=== PATIENT | female | born 1970 | race Caucasian/White ===

== ENCOUNTER → 2021-05-11 12:34 | Outpatient (CLI) | payer OTHER, SELFPAY ==
--- NOTE | ~2021-05-11 | MM_ITS ---
EXAMINATION: MM screening pepper BI w jaimie HISTORY: Screening TECHNIQUE: Craniocaudal and mediolateral oblique 3-D tomosynthesis images were obtained and synthetic 2-D images were generated. CAD analysis was submitted and interpreted. COMPARISON: Comparison to multiple prior studies sequentially, with oldest reviewed study dated 03/17. BREAST PARENCHYMAL COMPOSITION: There are scattered areas of fibroglandular density. FINDINGS: There is no evidence of suspicious mass, calcification, or architectural distortion to sugg est malignancy in either breast. There has been no suspicious interval change. IMPRESSION: 1. No mammographic evidence of malignancy. 2. Recommend routine screening mammography in one year. BI-RADS Category 1: Negative Reviewed, dictated and finalized at location A.
== END ==
PROVIDERS: Visit Provider Obstetrics & Gynecology
DX: Z12.31 Encounter for screening mammogram for malignant neoplasm of breast (principal)
CPT/HCPCS: 77063; 77067

== ENCOUNTER 2022-07-10 10:17 | Emergency (ER) | payer OTHER, SELFPAY ==
--- NOTE | ~2022-07-10 | CT_ITS ---
EXAMINATION: CT abdomen pelvis w con DATE: 07/10/2022 11:47 INDICATION: Low abdominal pain. TECHNIQUE: Computed tomography (CT) of the abdomen and pelvis was performed with 100 mL Omnipaque 350 intravenous contrast. Automated exposure control and iterative reconstruction technique were employe d. The dose-length product was 386.63 mGy-cm. COMPARISON: CT abdomen and pelvis 08/12/2018 FINDINGS: The visualized portions of the lung bases demonstrate mild atelectasis. No pleural effusion . The heart size is normal. No pericardial effusion. The liver, gallbladder, spleen, pancreas, adrena l glands, and kidneys are normal. There is wall thickening of the descending and sigmoid colon, consi stent with colitis. The appendix is normal. There are no pathologically enlarged lymph nodes. There i s no free intraperitoneal fluid. There is severe lumbar spondylosis. IMPRESSION: 1. Colitis involving the descending and sigmoid colon. Reviewed, dictated and finalized at location A.
[2022-07-10 10:20] VITALS: BP 103/76; PULSE 80; RESP 16; TEMP 36.5; O2SAT 100
[2022-07-10 11:07] LABS: Basophils Percent Auto 0.3 % (0.2-1.2); Eosinophils Percent Auto 0.1 % (0-4.4); Hematocrit 44.4 % (37.0-47.0); Hemoglobin 14.8 g/dL (12.0-15.0); Immature Granulocyte Absolute 0.03 K/mm3 (0.00-0.031); Immature Granulocyte Percent A 0.3 % (0-0.5); Lymphocytes Absolute Auto 1.24 K/mm3 (0.9-3.2); Lymphocytes Percent Auto 11.9 % (18.3-44.2); Mean Corpuscular HGB Conc 33.3 g/dl (32-36); Mean Corpuscular Hemoglobin 28.8 pg (26-34); Mean Corpuscular Volume 86.4 fl (80-100); Mean Platelet Volume 10.3 fl (7.4-10.4); Monocytes Absolute Auto 0.4 K/mm3 (0.1-0.6); Monocytes Percent Auto 3.4 % (2.6-8.5); Neutrophils Absolute Auto 8.8 K/mm3 (1.3-6.7); Platelet Count Result 262 k/mm3 (150-375); Red Blood Count 5.14 M/mm3 (4.2-5.4); White Blood Count 10.4 K/mm3 (4.5-10.0)
[2022-07-10 11:18] LABS: Alanine Aminotransferase 24 U/L (6-35); Albumin Level 4.7 g/dL (3.5-5.1); Alkaline Phosphatase 50 U/L (38-126); Anion Gap 14 mmol/L (8-16); Aspartate Amino Transferase 26 U/L (14-36); Bilirubin,Total 0.4 mg/dL (0.2-1.3); Blood Urea Nitrogen 13 mg/dL (7-17); Calcium 9.5 mg/dL (8.4-10.2); Carbon Dioxide 25 mmol/L (22-30); Chloride 104 mmol/L (98-107); Estimated CRCL calculation 72 ml/min; Estimated Glomerular Filt Rate > 60; Glucose 164 mg/dL (65-110); Lipase 28 U/L (23-300); Potassium 3.6 mmol/L (3.4-5.0); Sodium 143 mmol/L (137-145)
--- NOTE | 2022-07-10 11:19 | ED.ABDPAIN ---
HPI - Abdominal Pain General Chief Complaint: Abdominal Pain Stated Complaint: bloody stool since 0200 Time Seen by Provider: 07/10/22 11:08 Source: patient and family Mode of arrival: ambulatory Limitations: no limitations History of Present Illness HPI narrative: Patient presents complaints of lower abdominal pain that started 2 days ago. Reports having bloody mucus like stools. Evaluated by ACTUARIAL DIRECTOR yesterday with rectal exam and no palpable hemorrhoids. Patient states that 0 200 this a.m. started having increased pain to lower abdomen. Denies urinary symptoms, vaginal symptoms, fever or other complaints at this time. Related Data Home Medications Medication Instructions Recorded Confirmed norethindrone (contraceptive) 0.35 0.35 mg PO DAILY 11/16/21 05/06/22 mg tablet (Norlyda) Allergies Allergy/AdvReac Type Severity Reaction Status Date / Time No Known Allergies Allergy Verified 07/10/22 10:25 Review of Systems Review of Systems: CONSTITUTIONAL: Denies fever, chills, or sweats. EYES: Denies visual changes, redness, or discharge. ENT: Denies rhinorrhea, congestion, sore throat, or otalgia. CARDIOVASCULAR: Denies chest pain, palpitations, or edema. RESPIRATORY: Denies cough or dyspnea. GASTROINTESTINAL: Lower abdominal pain, nausea, vomiting, or diarrhea. Bloody mucous like stools. GENITOURINARY: Denies dysuria or hematuria. SKIN: Denies rash or itching. MUSCULOSKELETAL: Denies back pain, joint pain, or myalgia. NEUROLOGIC: Denies headache, numbness, or weakness. PSYCHIATRIC: Denies anxiety or depression. All systems reviewed & are unremarkable except as noted in HPI and below PMFSH Past Medical History Medical History (Updated 07/10/22 @ 12:29 by Brandon Aguirre APRN) delivery delivered Family History Family History Mother Hypertension Grandparent Family history of coronary artery disease Diabetes mellitus Father Advanced dementia Other Family history of malignant neoplasm Social History Social History Smoking status: Never smoker Alcohol intake: current Exam Narrative: GENERAL: Well-appearing, well-nourished, and in no acute distress. HEAD: Normocephalic, atraumatic. EYES: PERRLA and EOMI. ENT: Nares clear, no rhinorrhea or epistaxis. Mucous membranes moist. NECK: Supple. CHEST: Clear to auscultation. No respiratory distress. HEART: Regular rate and rhythm. No murmur heard. Normal peripheral pulses. ABDOMEN: Soft, slight tenderness lower ABD (RLQ, LLQ), nondistended, normal active bowel sounds. EXTREMITIES: Normal range of motion. No edema. SKIN: Warm, dry, no rash. NEURO: No focal deficits. Alert and oriented x3. PSYCH: Normal mood and affect. Course Vital Signs Vital signs: Vital Signs Temperature 36.5 C 07/10/22 10:20 Pulse Rate 80 07/10/22 10:20 Respiratory Rate 16 07/10/22 10:20 Blood Pressure 103/76 07/10/22 10:20 Pulse Oximetry 100 07/10/22 10:20 Oxygen Delivery Room Air 07/10/22 10:20 Temperature 36.5 C 07/10/22 10:20 Pulse Rate 80 07/10/22 10:20 Respiratory Rate 16 07/10/22 10:20 Blood Pressure 103/76 07/10/22 10:20 Pulse Oximetry 100 07/10/22 10:20 Oxygen Delivery Room Air 07/10/22 10:20 MDM - Abdominal Pain Lab Data Result diagrams: 07/10/22 10:58 07/10/22 10:58 Labs: Lab Results 07/10/22 07/10/22 07/10/22 Range/Units 10:58 10:58 10:58 WBC 10.4 H (4.5-10.0) K/mm3 RBC 5.14 (4.2-5.4) M/mm3 Hgb 14.8 (12.0-15.0) g/dL Hct 44.4 (37.0-47.0) % MCV 86.4 (80-100) fl MCH 28.8 (26-34) pg MCHC 33.3 (32-36) g/dl RDW 13.0 (11.5-14.5) % Plt Count 262 (150-375) k/mm3 MPV 10.3 (7.4-10.4) fl Immature Gran % (Auto) 0.3 (0-0.5) % Neut % (Auto) 84.0 H (45.5-73.1) % Lymph % (Auto) 11.9 L (1
[2022-07-10 11:27] LABS: Add Urine Microscopic? YES; Appearance Urine Cloudy (Clear); Bilirubin Urine Negative (Negative); Blood Urine 3+ (Negative); Color Urine Yellow (Yellow); Glucose Urine UA Negative (Negative); Ketones Urine Negative (Negative); Leukocyte Esterase Ur Negative LEU/UL (Negative); Mucus Urine Heavy /lpf; Nitrate Urine Negative (Negative); Protein Urine 1+ mg/dL (Negative); RBC Urine >75 /hpf (0-2); Specific Grav Ur 1.026 (1.001-1.035); Squamous Epithelial Cell Urine Many /hpf (Few); Urobilinogen Urine Negative mg/dL (<2.0); WBC Urine 16-20 /hpf
[2022-07-10 13:02] VITALS: BP 149/83; PULSE 72; RESP 16
== END 2022-07-10 13:03 | disposition home or self-care (01) ==
PROVIDERS: General Practice; Emergency Provider Nurse Practitioner; PCP Family Medicine
DX: K52.9 Noninfective gastroenteritis and colitis, unspecified (principal)
CPT/HCPCS: 36415; 74177; 80053; 81001; 81025; 83690; 85025; 87086; 99284; Q9967

== ENCOUNTER 2022-08-05 08:00 | Outpatient (NON) | payer OTHER, SELFPAY | END 2022-08-05 08:01 | disposition home or self-care (01) | LOC: ANHLAB 08-06 07:51 | PROVIDERS: PCP Family Medicine; Visit Provider Internal Medicine Gastroenterology | DX: K52.9 Noninfective gastroenteritis and colitis, unspecified (principal) | CPT/HCPCS: 88305 ==

== ENCOUNTER 2022-08-05 10:46 | Day surgery (SDC) | payer OTHER, SELFPAY ==
[2022-07-17 14:35] VITALS: BMI 25.7
[2022-08-05 11:09] VITALS: BMI 25.7
--- NOTE | 2022-08-05 11:11 | P.PNAN_ITS ---
Anes - Initial Pre Proc Eval Procedure: Operation Date: 08/05/22 12:30 Proposed Procedures p Diagnostic Colonoscopy - Tomas Issa MD Date/Time: 08/05/22 11:11 Surgeon: Tomas Issa MD Pre Op Diagnosis: Colitis Patient Data Age: 51 Gender: F Height: 1.63 m Weight: 68 kg Allergies Allergy/AdvReac Type Severity Reaction Status Date / Time No Known Allergies Allergy Verified 08/05/22 10:55 Home Medications Medication Instructions Recorded Confirmed Type norethindrone (contraceptive) 0.35 0.35 mg PO DAILY 11/16/21 08/05/22 History mg tablet (Norlyda) sodium,potassium,mag sulfates 17.5 See Rx Instructions PO .COMPLEX 07/12/22 07/18/22 Rx gram-3.13 gram-1.6 gram oral soln #354 mL (Suprep Bowel Prep Kit) Patient hx anesthesia problems: none Family hx anesthesia problems: none Results Review: All pre-operative results and documents have been reviewed as part of the pre- operative evaluation. [facility] Past Medical History Medical History BMI 26.0-26.9,adult delivery delivered Smoker Surgical History Surgical History (Updated 08/05/22 @ 11:11 by Rex Cyr MD) History of section Family History Family History Mother Hypertension Grandparent Family history of coronary artery disease Diabetes mellitus Father Advanced dementia Other Family history of malignant neoplasm Social History Social History Smoking packs per day: 0.3 Smoking cigarettes per day: 6.0 Years smoked: 20 Smoking pack-years: 6.00 Smoking status: Current every day smoker Tobacco type: cigarettes Alcohol intake: current Substance use: never Substance use type: does not use Living arrangements: with family Spiritual care concerns: No Anes - Eval Final PreProcedure Day of Procedure 08/05/22 11:11 Patient weight: normal Heart: regular rate and rhythm Lungs: clear to auscultation Airway: Mallampati scale class II Neurological: alert and oriented Last oral intake: >/= 8 hours ASA classification: II Emergent: no Anesthetic plan: proceed Anesthesia type and monitoring: general GIVS and standard monitoring Results Review: All pre-operative results and documents have been reviewed as part of the pre-operative evaluation. Informed Consent: The patient's anesthetic plan and its attendant risks and benefits were discussed with the patient/family/POA. Questions were solicited and answers provided to the satisfaction of the patient/family/POA.
--- NOTE | 2022-08-05 11:11 | PM.HPGS ---
History of Present Illness History of Present Illness Consent: Risks, benefits, and alternatives have been discussed and questions answered. Patient agrees to proceed with procedure. Chief complaint: Colitis Narrative: Keyana Maharaj is a 51 year old female Referred for colonoscopy. Patient reports that she went to the emergency room on 07/10/2022. She awoke that morning with bloody diarrhea. She went to the emergency room with rather significant watery diarrhea that was blood tinged. A CT scan in the emergency room suggested colitis. Patient was treated empirically with antibiotics of Cipro and Flagyl. She noticed improvement over a week's time. Patient did not have stool cultures obtained. Patient reports that at baseline her bowel habits are somewhat irregular. She typically does not have pain nor bleeding. Family history is noncontributory. Patient presents today on referral for colonoscopy because of recent bout of colitis. Review of Systems Review of Systems: Review of systems noncontributory. [facility] Past Medical History Medical History BMI 26.0-26.9,adult delivery delivered Smoker Surgical History Surgical History (Updated 08/05/22 @ 11:11 by Rex Cyr MD) History of section Family History Family History Mother Hypertension Grandparent Family history of coronary artery disease Diabetes mellitus Father Advanced dementia Other Family history of malignant neoplasm Social History Social History Smoking packs per day: 0.3 Smoking cigarettes per day: 6.0 Years smoked: 20 Smoking pack-years: 6.00 Smoking status: Current every day smoker Tobacco type: cigarettes Alcohol intake: current Substance use: never Substance use type: does not use Living arrangements: with family Spiritual care concerns: No Meds Home Medications and Allergies Home Medications Medication Instructions Recorded Confirmed Type norethindrone (contraceptive) 0.35 0.35 mg PO DAILY 11/16/21 08/05/22 History mg tablet (Norlyda) sodium,potassium,mag sulfates 17.5 See Rx Instructions PO .COMPLEX 07/12/22 07/18/22 Rx gram-3.13 gram-1.6 gram oral soln #354 mL (Suprep Bowel Prep Kit) Allergies Allergy/AdvReac Type Severity Reaction Status Date / Time No Known Allergies Allergy Verified 08/05/22 10:55 Exam Narrative: Physical exam reveals patient to be alert. Vital signs stable. HEENT exam is unremarkable. Patient is anicteric. Lungs are clear to auscultation and percussion. Heart is without murmur or extra sounds. Abdomen bowel sounds are present soft nontender with no organomegaly. Digital external rectal exam is normal. Assessment and Plan Assessment and plan (1) Colitis: Code(s): K52.9 - Noninfective gastroenteritis and colitis, unspecified Status: Acute Assessment and Plan: Patient reports a bout of bloody diarrhea [address] scan in the emergency room suggested colitis. Patient was treated with broad-spectrum antibiotics for presumed infectious colitis. Plan is for follow-up colonoscopy at this time. Should diarrhea recur then stool cultures would be beneficial. Further recommendations may be Given after endoscopy. suggest high-fiber diet at this time.
[2022-08-05 11:18] VITALS: BP 103/61; RESP 13; TEMP 36.7; O2SAT 100
[2022-08-05] MEDS: LACTATED RINGERS 1,000 ML 150 ML IV CONT (11:25)
[2022-08-05 11:45] VITALS: BP 107/74; PULSE 94; RESP 16; O2SAT 100
--- NOTE | 2022-08-05 11:48 | WPDANESPN ---
Anes - Prog Note Post-Op Date/Time: 08/05/22 11:48 Cardiovascular status: normal Respiratory status: normal Airway patency: baseline Mental status: baseline Post-Op hydration status: normal Vital Signs: Last Vital Signs Temp 36.7 C 08/05/22 11:18 Resp 13 08/05/22 11:18 BP 103/61 08/05/22 11:18 Pulse Ox 100 08/05/22 11:18 O2 Del Method Room Air 08/05/22 11:18 Pain Score (VAS): 0/10 I/O: Intake & Output 08/04/22 08/05/22 08/05/22 23:59 07:59 15:59 Intake Total 300 Balance 300 Patient Feedback: Patient satisfied with anesthetic care.
[2022-08-05 11:55] VITALS: BP 97/71; PULSE 89; RESP 20; O2SAT 100
[2022-08-05 12:05] VITALS: BP 112/59; PULSE 89; RESP 20; O2SAT 100
== END 2022-08-05 12:20 | disposition home or self-care (01) ==
PROVIDERS: PCP Family Medicine; Visit Provider Internal Medicine Gastroenterology
PROC: 0DJD8ZZ Inspection of Lower Intestinal Tract, Via Natural or Artificial Opening Endoscopic (ICD-10-PCS; CPT 45378; principal; 2022-08-05 12:30)
DX: R93.3 Abnormal findings on diagnostic imaging of other parts of digestive tract (principal)
CPT/HCPCS: 45385

== ENCOUNTER → 2022-09-20 10:51 | Outpatient (CLI) | payer OTHER, SELFPAY ==
--- NOTE | ~2022-09-20 | MM_ITS ---
EXAMINATION: MM screening [facility] BI w jaimie HISTORY: Screening TECHNIQUE: Craniocaudal and mediolateral oblique 3-D tomosynthesis images were obtained and synthetic 2-D images were generated. CAD analysis was submitted and interpreted. COMPARISON: Comparison to multiple prior studies sequentially, with oldest reviewed study dated 08/30. BREAST PARENCHYMAL COMPOSITION: There are scattered areas of fibroglandular density. FINDINGS: There is no evidence of suspicious mass, calcification, or architectural distortion to sugg est malignancy in either breast. There has been no suspicious interval change. IMPRESSION: 1. No mammographic evidence of malignancy. 2. Recommend routine screening mammography in one year. BI-RADS Category 1: Negative Reviewed, dictated and finalized at location A. ING MACHINE OPERATOR
== END ==
PROVIDERS: PCP Family Medicine; Visit Provider Nurse Practitioner
DX: Z12.31 Encounter for screening mammogram for malignant neoplasm of breast (principal)
CPT/HCPCS: 77063; 77067

== ENCOUNTER 2023-12-24 13:06 | Outpatient (CLI) | payer OTHER, SELFPAY ==
--- NOTE | ~2023-12-24 | MM_ITS ---
EXAMINATION: MM screening pepper BI w jaimie HISTORY: Screening mammogram TECHNIQUE: Craniocaudal and mediolateral oblique 3-D tomosynthesis images were obtained and synthetic 2-D images were generated. CAD analysis was submitted and interpreted. COMPARISON: 09/20/2022, bilateral screening mammogram examinations BREAST PARENCHYMAL COMPOSITION: There are scattered areas of fibroglandular density. FINDINGS: There is no evidence of suspicious mass, calcification, or architectural distortion to sugg est malignancy in either breast. There has been no suspicious interval change. IMPRESSION: 1. No mammographic evidence of malignancy. 2. Recommend routine screening mammography in one year. BI-RADS Category 1: Negative Reviewed, dictated and finalized at location A.
== END 2023-12-24 13:07 ==
LOC: MICIMG 13:07
PROVIDERS: PCP Nurse Practitioner; Visit Provider Nurse Practitioner
DX: Z12.31 Encounter for screening mammogram for malignant neoplasm of breast (principal)
CPT/HCPCS: 77063; 77067

== ENCOUNTER 2025-02-09 13:06 | Outpatient (CLI) | payer BC, SELFPAY ==
--- NOTE | ~2025-02-09 | MM_ITS ---
EXAMINATION: MM screening pepper BI w jaimie HISTORY: Screening TECHNIQUE: Craniocaudal and mediolateral oblique 3-D tomosynthesis images were obtained and synthetic 2-D images were generated. CAD analysis was submitted and interpreted. COMPARISON: Comparison to multiple prior studies sequentially, with oldest reviewed study dated 04/17. BREAST PARENCHYMAL COMPOSITION: Not dense: There are scattered areas of fibroglandular density. FINDINGS: There is no evidence of suspicious mass, calcification, or architectural distortion to sugg est malignancy in either breast. There has been no suspicious interval change. IMPRESSION: 1. No mammographic evidence of malignancy. 2. Recommend routine screening mammography in one year. BI-RADS Category 1: Negative Reviewed, dictated and finalized at location A.
== END 2025-02-09 13:07 | disposition home or self-care (01) ==
LOC: MICIMG 13:08
PROVIDERS: PCP Family Medicine; Visit Provider Nurse Practitioner
DX: Z12.31 Encounter for screening mammogram for malignant neoplasm of breast (principal)
CPT/HCPCS: 77063; 77067

== ENCOUNTER 2025-08-06 06:57 | Outpatient (CLI) | payer BC, SELFPAY ==
[2025-08-06 07:57] LABS: Hematocrit 40.0 % (37.0-47.0); Hemoglobin 13.0 g/dL (12.0-15.0); Immature Granulocyte Percent A 0.3 % (0-0.5); Lymphocytes Absolute Auto 1.97 K/mm3 (0.9-3.2); Mean Corpuscular HGB Conc 32.5 g/dl (32-36); Mean Corpuscular Hemoglobin 27.5 pg (26-34); Mean Corpuscular Volume 84.6 fl (80-100); Nucleated Red Blood Cells Absolute Auto 0.000 K/mm3 (0.0-0.012); Nucleated Red Blood Cells Perc 0.0 % (0.0-0.2); Platelet Count Result 231 k/mm3 (150-375); Red Blood Count 4.73 M/mm3 (4.2-5.4); White Blood Count 5.9 K/mm3 (4.5-10.0)
[2025-08-06 08:20] LABS: Alanine Aminotransferase 21 U/L (6-35); Albumin Level 4.1 g/dL (3.5-5.1); Alkaline Phosphatase 46 U/L (38-126); Anion Gap 6 mmol/L (4-12); Aspartate Amino Transferase 26 U/L (14-36); Bilirubin,Total 0.4 mg/dL (0.2-1.3); Blood Urea Nitrogen 17 mg/dL (7-17); Calcium 8.9 mg/dL (8.4-10.2); Carbon Dioxide 26 mmol/L (22-30); Chloride 107 mmol/L (98-107); Cholesterol 168 mg/dL (0-200); Estimated Glomerular Filt Rate > 60; Glucose 101 mg/dL (65-110); HDL Direct 41 mg/dL; Potassium 4.2 mmol/L (3.4-5.0); Sodium 139 mmol/L (137-145); Total Protein 6.7 g/dL (6.3-8.2); Triglycerides 54 mg/dL (<150)
[2025-08-06 08:54] LABS: Thyroid Stimulating Hormone 2.770 uIU/mL (0.465-4.680)
== END 2025-08-06 06:58 | disposition home or self-care (01) ==
LOC: ANHLAB 06:58
PROVIDERS: PCP Family Medicine; Visit Provider Nurse Practitioner Adult Health
DX: Z13.0 Encounter for screening for diseases of the blood and blood-forming organs and certain disorders involving the immune mechanism (principal); Z13.29 Encounter for screening for other suspected endocrine disorder; Z13.220 Encounter for screening for lipoid disorders; Z13.1 Encounter for screening for diabetes mellitus
CPT/HCPCS: 36415; 80053; 80061; 84443; 85025

== ENCOUNTER 2025-08-19 02:49 | Day surgery (SDC) | payer BC, SELFPAY ==
[2025-08-02 15:18] VITALS: BMI 27.6
[2025-08-19 07:18] VITALS: BP 136/76; PULSE 83; RESP 16; TEMP 36.4; O2SAT 100; BMI 29.0
--- NOTE | 2025-08-19 07:29 | WPDANESEPPF ---
Anes - Initial Pre Proc Eval Procedure: Operation Date: 08/19/25 08:30 Proposed Procedures p Screening Colonoscopy - Ramon Hunter MD Date/Time: 08/19/25 07:29 Surgeon: Ramon Hunter MD Pre Op Diagnosis: Other hemorrhoids, Polyp of colon Patient Data Age: 54 Gender: F Height: 1.63 m Weight: 76.6 kg Last Vital Signs Temp 36.4 C 08/19/25 07:18 Pulse 83 08/19/25 07:18 Resp 16 08/19/25 07:18 BP 136/76 08/19/25 07:18 Pulse Ox 100 08/19/25 07:18 O2 Del Method Room Air 08/19/25 07:18 Allergies Allergy/AdvReac Type Severity Reaction Status Date / Time No Known Allergies Allergy Verified 08/19/25 07:16 Home Medications ?Medication ?Instructions ?Recorded ?Confirmed ?Type norethindrone (contraceptive) 0.35 0.35 mg PO DAILY 11/16/21 08/19/25 History mg tablet (Norlyda) alprazolam 0.5 mg tablet (Xanax) 0.5 mg PO DAILY PRN anxiety #5 tabs 06/15/25 08/02/25 Rx Patient hx anesthesia problems: none Family hx anesthesia problems: none Results Review: All pre-operative results and documents have been reviewed as part of the pre-operative evaluation. [facility] Past Medical History Medical History Hematochezia Acute sinusitis Hyperlipidemia Needle phobia Colon polyp BMI 28.0-28.9,adult Smoker BMI 26.0-26.9,adult delivery delivered Surgical History Surgical History Hx of colonoscopy History of section Family History Family History Mother Hypertension Grandparent Family history of coronary artery disease Diabetes mellitus Father Advanced dementia Malignant neoplasm of prostate Sibling Leukemia Other Family history of malignant neoplasm Social History Social History Smoking packs per day: 0.3 Smoking cigarettes per day: 6.0 Years smoked: 20 Smoking pack-years: 6.00 Smoking status: Former smoker Tobacco type: e-cigarettes/vaping Second hand tobacco smoke exposure: Yes Alcohol intake: never Alcohol use details: RARELY Substance use: never Substance use type: does not use Do You Feel Safe in your Home?: Yes Lack of Transportation: No Lack of Food: Never True Current Housing: I Have Housing Concerned About Future Housing: No Difficulty Paying Gas/Electric Bills: No Difficulty Paying for Meds: No Currently Unemployed: No Education: High School Diploma/GED Difficulty w/ Childcare or Family Care: No Living arrangements: with family Occupation/Education: occupation 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 Informed Consent: The patient's anesthetic plan and its attendant risks and benefits were discussed with the patient/family/POA. Questions were solicited and answers provided to the satisfaction of the patient/family/POA.
[2025-08-19] MEDS: LACTATED RINGERS 1,000 ML 150 ML IV CONT (07:32)
--- NOTE | 2025-08-19 07:56 | PM.IMHP ---
H&P: HPI History of Present Illness Date/Time: 08/19/25 07:56 Chief Complaint: History of colon polyps Narrative: The patient has a history of colonic polyps, the last colonoscopy was 3 years ago, finding a sessile serrated polyp in the ascending colon. She is referred for surveillance colonoscopy. Review of Systems Review of Systems: All systems reviewed & are unremarkable except as noted in HPI and below PMFSH Past Medical History Medical History Hematochezia Acute sinusitis Hyperlipidemia Needle phobia Colon polyp BMI 28.0-28.9,adult Smoker BMI 26.0-26.9,adult delivery delivered Surgical History Surgical History Hx of colonoscopy History of section Family History Family History Mother Hypertension Grandparent Family history of coronary artery disease Diabetes mellitus Father Advanced dementia Malignant neoplasm of prostate Sibling Leukemia Other Family history of malignant neoplasm Social History Social History Smoking packs per day: 0.3 Smoking cigarettes per day: 6.0 Years smoked: 20 Smoking pack-years: 6.00 Smoking status: Former smoker Tobacco type: e-cigarettes/vaping Second hand tobacco smoke exposure: Yes Alcohol intake: never Alcohol use details: RARELY Substance use: never Substance use type: does not use Do You Feel Safe in your Home?: Yes Lack of Transportation: No Lack of Food: Never True Current Housing: I Have Housing Concerned About Future Housing: No Difficulty Paying Gas/Electric Bills: No Difficulty Paying for Meds: No Currently Unemployed: No Education: High School Diploma/GED Difficulty w/ Childcare or Family Care: No Living arrangements: with family Occupation/Education: occupation 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 by the patient): Female Spiritual care concerns: No Meds Home Medications and Allergies Home Medications ?Medication ?Instructions ?Recorded ?Confirmed ?Type norethindrone (contraceptive) 0.35 0.35 mg PO DAILY 11/16/21 08/19/25 History mg tablet (Norlyda) alprazolam 0.5 mg tablet (Xanax) 0.5 mg PO DAILY PRN anxiety #5 tabs 06/15/25 08/02/25 Rx Allergies Allergy/AdvReac Type Severity Reaction Status Date / Time No Known Allergies Allergy Verified 08/19/25 07:16 Vital Signs Vital Signs - 24 hr 08/19/25 07:18 Temperature 97.6 F Pulse Rate 83 Respiratory Rate 16 Blood Pressure 136/76 Pulse Oximetry 100 Oxygen Delivery Room Air Exam Const: General: cooperative and healthy appearing Resp: Effort & Inspection: normal respiratory effort and able to speak in complete sentences Auscultation: clear to auscultation bilaterally Cardio: Rate: regular rate Rhythm: regular rhythm GI: Inspection: normal to inspection GI Palp: No No hepatosplenomegaly present Auscultation: normal bowel sounds Rectal Exam: deferred Skin: General skin exam: normal color Psych: Appearance: grossly normal Mental Status: mental status grossly normal Assessment and Plan Assessment and plan (1) Colon polyp: Code(s): K63.5 - Polyp of colon Status: Acute Assessment and Plan: The patient is deemed a good candidate for the procedure. Consent signed. Will proceed.
[2025-08-19 08:43] VITALS: BP 114/59; PULSE 85; RESP 21; O2SAT 97
[2025-08-19 08:53] VITALS: BP 124/90; PULSE 92; RESP 23; O2SAT 98
[2025-08-19 09:03] VITALS: BP 127/78; PULSE 77; RESP 22; O2SAT 99
[2025-08-22 11:46] LABS: BEDSIDEPREGUCG Negative (Negative)
== END 2025-08-19 09:13 | disposition home or self-care (01) ==
PROVIDERS: PCP Family Medicine; Referring Provider Nurse Practitioner Adult Health; Visit Provider Internal Medicine Gastroenterology
PROC: 0DJD8ZZ Inspection of Lower Intestinal Tract, Via Natural or Artificial Opening Endoscopic (ICD-10-PCS; CPT 45378; principal; 2025-08-19 08:30)
DX: Z12.11 Encounter for screening for malignant neoplasm of colon (principal); K57.30 Diverticulosis of large intestine without perforation or abscess without bleeding; E78.5 Hyperlipidemia, unspecified; Z98.890 Other specified postprocedural states; Z86.0100 Personal history of colon polyps, unspecified; Z87.891 Personal history of nicotine dependence; Z80.6 Family history of leukemia; Z80.42 Family history of malignant neoplasm of prostate; Z82.49 Family history of ischemic heart disease and other diseases of the circulatory system
CPT/HCPCS: 45378; J2003; J2704; J7120